=== PATIENT | male | born 1945 | race African-American/Black ===

== ENCOUNTER 2017-04-08 15:38 | Inpatient (IN) | payer OTHER ==
[~2017-04-08] VITALS: Ht 172.7 cm; Wt 95.3 kg
[2017-04-08] MEDS ORDERED: METO-296 PO (15:43)
[2017-04-08] MEDS ORDERED: ACETAMINOPHEN 325MG TABLET PO STA (16:17)
[2017-04-08] MEDS ORDERED: SODIUM CHLORIDE 0.9% 1,000 ML IV ONE ×2 (16:17→17:27)
[2017-04-08] MEDS ORDERED: KETOROLAC 30MG/ML VIAL IV STA (16:17)
[2017-04-08 16:42] LABS: HEMATOCRIT. 40.7 % (42.0-52.0); HEMOGLOBIN. 13.9 g/dL (14.0-18.0); MEAN CORPUSCULAR HEMOGLOBIN 30.6 pg (28.0-32.0); MEAN CORPUSCULAR VOLUME 89.4 fL (80.0-94.0); MEAN PLATELET VOLUME 8.1 fl (7.4-10.4); PLATELET 192 x1000/uL (130-400); RED BLOOD CELL COUNT 4.55 mill/uL (4.7-6.1); RED CELL DISTRIBUTION WIDTH 13.9 % (11.6-14.6)
[2017-04-08 16:49] LABS: CHLORIDE 104 mEq/L (98-107); INR 1.3; PROTHROMBIN TIME 13.8 sec
[2017-04-08 16:52] LABS: CARBON DIOXIDE 26 mEq/L (21-32)
[2017-04-08 16:58] LABS: CREATINE KINASE 357 IU/L (39-308); TROPONIN I 0.05 ng/mL (0.00-0.04)
[2017-04-08 17:03] LABS: PLATELET ESTIMATE NORMAL
[2017-04-08] MEDS ORDERED: CLONIDINE 0.2MG TABLET PO ONE (17:30)
[2017-04-08 17:33] LABS: CLARITY URINE CLEAR (CLEAR); COLOR URINE YELLOW (YELLOW); GLUCOSE URINE NEGATIVE (NEGATIVE); KETONES URINE NEGATIVE (NEGATIVE); LEUKOCYTE ESTERASE URINE NEGATIVE (NEGATIVE); NITRITE URINE NEGATIVE (NEGATIVE); OCCULT BLOOD URINE NEGATIVE (NEGATIVE); PROTEIN URINE NEGATIVE (NEGATIVE); SPECIFIC GRAVITY URINE 1.015 (1.005-1.030); UROBILINOGEN URINE 0.2 E.U./dL (0.2-1.0)
[2017-04-08 17:48] LABS: *AMPHETAMINES SCREEN URINE NEGATIVE (NEGATIVE); *BARBITURATES SCREEN URINE NEGATIVE (NEGATIVE); *BENZODIAZEPINES SCREEN URINE NEGATIVE (NEGATIVE); *COCAINE SCREEN URINE NEGATIVE (NEGATIVE); CANNABINOID URINE SCREEN NEGATIVE (NEGATIVE); METHADONE URINE SCREEN NEGATIVE (NEGATIVE); OPIATES URINE SCREEN NEGATIVE (NEGATIVE); PHENCYCLIDINE URINE SCREEN NEGATIVE (NEGATIVE)
[2017-04-08] MEDS ORDERED: IPRATROPIUM/ALBUTEROL 0.5-3(2.5)MG/3ML NEB INH PRN (20:15)
[2017-04-08] MEDS ORDERED: ONDANSETRON HCL 4MG/2ML VIAL IV PRN (20:15)
[2017-04-08] MEDS ORDERED: DOCUSATE SODIUM 100MG CAPSULE PO PRN (20:15)
[2017-04-08 21:02] LABS: CREATINE KINASE 443 IU/L (39-308); ETHANOL BLOOD < 10 mg/dL
[2017-04-08 21:32] VITALS: BP 181/113
[2017-04-08] MEDS ORDERED: LOSA25TA3 PO (21:36)
[2017-04-08] MEDS ORDERED: ATOR80TA PO (21:36)
[2017-04-08] MEDS: ACETAMINOPHEN 325MG TABLET PO PRN (21:43)
[2017-04-08] MEDS ORDERED: ENALAPRIL 2.5MG/2ML VIAL 2ML IV PRN (21:45)
[2017-04-08 22:04] VITALS: BP 152/88
[2017-04-08 22:13] VITALS: BP 152/88
[2017-04-09] VITALS: BP 136/91
[2017-04-09] MEDS: SODIUM CHLORIDE 0.9% 1,000 ML IV SCH ×2 (01:11→11:17)
[2017-04-09 04:00] VITALS: BP 142/87
[2017-04-09] MEDS: ACETAMINOPHEN 325MG TABLET PO PRN (04:51)
[2017-04-09 06:22] LABS: HEMATOCRIT. 40.6 % (42.0-52.0); HEMOGLOBIN. 13.8 g/dL (14.0-18.0); MEAN CORPUSCULAR HEMOGLOBIN 30.7 pg (28.0-32.0); MEAN CORPUSCULAR VOLUME 90.2 fL (80.0-94.0); MEAN PLATELET VOLUME 8.3 fl (7.4-10.4); PLATELET 180 x1000/uL (130-400); RED CELL DISTRIBUTION WIDTH 13.9 % (11.6-14.6)
[2017-04-09] MEDS ORDERED: ASPI-1159 PO (06:39)
[2017-04-09] MEDS ORDERED: OMEPRAZOLE 20MG CAPSULE EXTENDED RELEASE PO SCH (06:45)
[2017-04-09 07:44] LABS: CARBON DIOXIDE 22 mEq/L (21-32); CHLORIDE 103 mEq/L (98-107)
[2017-04-09 07:53] LABS: CREATINE KINASE 417 IU/L (39-308); PHOSPHORUS 2.2 mg/dL (2.5-4.9); TROPONIN I 0.05 ng/mL (0.00-0.04)
[2017-04-09 08:00] VITALS: BP 139/74
[2017-04-09] MEDS ORDERED: ENALAPRIL 1.25MG/ML VIAL 1ML IV PRN (09:00)
[2017-04-09] MEDS ORDERED: ASPIRIN 81MG TABLET PO SCH (09:00)
[2017-04-09] MEDS ORDERED: CLOPIDOGREL 75MG TABLET PO SCH (09:00)
[2017-04-09] MEDS ORDERED: MAGNESIUM 2 G PREMIX 50 ML IV NR (10:00)
[2017-04-09] MEDS ORDERED: POTASSIUM PHOS,M-BASIC-D-BASIC 10 MMOL in DEXT 5% WATER 246.6667 ML IV NR (11:00)
[2017-04-09 12:00] VITALS: BP 173/89
[2017-04-09 12:17] LABS: PLATELET ESTIMATE NORMAL
[2017-04-09 16:00] VITALS: BP 164/79
[2017-04-09 16:03] VITALS: BP 134/86
== END 2017-04-09 16:40 | disposition short-term general hospital (02) | DRG 866 ==
LOC: ER 15:56 → 5WST 19:19 → SUPCPDRO 19:24 → EDBEDREQSVC 19:32 → EDBEDREQ 19:32 → ENRESERV 19:57
PROVIDERS: ADMIT Family Medicine Adult Medicine; ATTEND Family Medicine Adult Medicine
DX: B34.9 Viral infection, unspecified (principal); M62.82 Rhabdomyolysis; E86.0 Dehydration; I44.0 Atrioventricular block, first degree; D72.825 Bandemia; I11.9 Hypertensive heart disease without heart failure; I25.10 Atherosclerotic heart disease of native coronary artery without angina pectoris; R74.0 Nonspecific elevation of levels of transaminase and lactic acid dehydrogenase [LDH]; R00.0 Tachycardia, unspecified; E83.42 Hypomagnesemia; E83.39 Other disorders of phosphorus metabolism; Z95.5 Presence of coronary angioplasty implant and graft
CPT/HCPCS: 36415; 71010; 80048; 80053; 80076; 80305; 81003; 82550; 83605; 83690; 83735; 83880; 84100; 84443; 84484; 85025; 85610; 87040; 87086; 87804; 93005; 96361; 96374; 97162; 99285; G0482; J1885; J2405; J3475; J3490; J7030; J7060